=== PATIENT | female | born 1950 | race Caucasian/White ===

== ENCOUNTER 2021-04-27 13:31 | Emergency (ER) | payer MEDICARE, SELFPAY ==
[2021-04-27] VITALS (22 sets, daily range): BP systolic 107–176; BP diastolic 60–109; PULSE 77–110; RESP 14–20; TEMP 36.3; O2SAT 94–98; BMI 24.0
--- NOTE | ~2021-04-27 | CT_ITS ---
EXAMINATION: CT HEAD WITHOUT CONTRAST CLINICAL INFORMATION: Headache. Confusion. COMPARISON: MR brain dated 05/10/2020. TECHNIQUE: Contiguous axial imaging was performed from the skull base to vertex without intravenous administration of contrast. This CT examination was performed using dose optimization techniques as appropriate, variously including the following: *Automated exposure control *Adjustment of mA and/or kV according to patient size (this includes techniques or standardized protocols for targeted exams where dose is matched to indication/reason for exam; i.e. extremities or head) *Use of iterative reconstruction technique DLP: 622 mGy-cm FINDINGS: There is lobulated hyperdensity within the right parieto-occipital lobe measuring 1.6 x 1.6 x 2.1 cm with adjacent parenchymal hypoattenuation. Findings are consistent with acute intraparenchymal hemorrhage and associated edema. This is new when compared to the prior MRI. Minimal effacement of the adjacent sulci as well as the posterior horn of the right lateral ventricle. No significant midline shift. Hypoattenuation of the periventricular white matter, consistent with chronic microvascular ischemic disease. Clarke to white matter differentiation is otherwise well preserved. No extra-axial fluid collections are identified. The ventricles are normal in size. The osseous structures and soft tissues are normal. The mastoid air cells and visualized portions of the paranasal sinuses are well aerated. CT/CT head/brain wo con IMPRESSION: Acute intraparenchymal hemorrhage within the right parieto-occipital lobe measuring up to 2.1 cm with adjacent parenchymal edema. Effacement of the adjacent sulci and partial effacement of the right posterior lateral ventricle. No significant midline shift. This critical result was discussed with Dr. Pizarro at 2:19 PM on 04/27/2021 and it was ascertained that the content and urgency of the report was understood at the time of direct communication.
--- NOTE | 2021-04-27 13:39 | ECG_ITS ---
Test Reason : STROKE Blood Pressure : / mmHG Vent. Rate : 089 BPM Atrial Rate : 089 BPM P-R Int : 132 ms QRS Dur : 078 ms QT Int : 350 ms P-R-T Axes : 030 034 045 degrees QTc Int : 425 ms Normal sinus rhythm Nonspecific ST abnormality Abnormal ECG No previous ECGs available Referred By: Chanda Pizarro Electronically Signed By:KOLE ROLLINS MD
--- NOTE | 2021-04-27 13:41 | ED.HA ---
HPI - Headache General Chief Complaint: Stroke Stated Complaint: Stroke Time Seen by Provider: 04/27/21 13:33 Source: patient Mode of arrival: wheelchair Limitations: no limitations History of Present Illness MD elicited complaint: headache (confusion) Pertinent past history: other (ICH 2.5 years ago) Onset (ago): hour(s) ( sometime this AM. ) Onset description: gradually Location: diffuse Severity: mild Quality & Timing: aching Exacerbating factors: none Relieving factors: nothing Context: occurred at rest Associated symptoms: other (feels confused and is having a hard time reading) Treatments prior to arrival: none (wheeled over from occupational therapy) Related Data Allergies Allergy/AdvReac Type Severity Reaction Status Date / Time No Known Allergies Allergy Verified 04/27/21 13:47 Review of Systems Review of Systems: Constitutional : No Fever, No Chills, No Fatigue ENT/Mouth : No sore throat, No Rhinorrhea Eyes: No Eye Pain, No Swelling, No Redness Cardiovascular : No Chest Pain, No SOB, No Dyspnea on Exertion Respiratory : No Cough, No Sputum Gastrointestinal : No Nausea, No Vomiting, No Diarrhea, No abdominal Pain Genitourinary : No Dysuria, No Urinary Frequency, No Hematuria, Musculoskeletal : No joint pain, No Myalgias, No Joint Swelling Skin : No Skin Lesions, No rash Neuro : No Weakness, No Numbness, No Dizziness, positive Headache, pos confusion Psych : No Anxiety/Panic, No Depression Heme/Lymph: No Bruising, No Bleeding,No Lymphadenopathy Endocrine : No Polyuria, No Polydipsia All other systems reviewed and are negative [facility] Past Medical History Attestation statement: The following information was validated with the patient. Medical History Hemorrhagic stroke Social History Social History (Updated 04/27/21 @ 13:55 by Chanda Pizarro DO) Patient Tobacco Use Status: Never used Tobacco Advance Directives: No Advance Directives Information Provided: Yes Physical Exam Vital Signs: Vital Signs: Last Vital Signs Temp 97.3 F 04/27/21 13:43 Pulse 95 04/27/21 15:58 Resp 16 04/27/21 15:43 BP 133/68 04/27/21 15:58 Pulse Ox 95 04/27/21 15:43 Body Mass Index 24.0 Appearance: Alert. Oriented X2 - states she cannot remember dates. No acute distress. somewhat agitated and upset Eyes: Pupils equal, round and reactive to light. denies visual field cuts ENT: Pharynx normal. Neck: Normal inspection. Neck supple. CVS: Normal heart rate and rhythm. Pulses normal. Respiratory: No respiratory distress. Breath sounds normal. Abdomen: Soft and nontender. Skin: Skin warm and dry. Normal skin color. Normal skin turgor. Extremities: No lower extremity edema. No calf ttp Neuro: Oriented X 2. No motor deficit. No sensory deficit. no drift, came in wheelchair Course Course Course Narrative: will send call to [facility] given ICH R occipital area near R lateral ventricle back in february I can only see atorvastatin, ativan and propanolol that was filled last she has not taken anything in 3 months BP 150 IV nicardipine BP 140 call to [facility] 210pm 244pm transfer to [facility] per stroke attending Dr. Pop waiting to speak to hospitalist team remains at her baseline, no acute changes still pending call back from [facility] 345pm crystal machining coordinator able to get records from PCP - possible amyloid in the past ? patient is not aware. signed out to [facility] pending sign out to hospitalist at [facility] Acute intraparenchymal hemorrhage within the right parieto-occipital lobe measuring up to 2.1 cm with adjacent parenchymal edema. Effacement of the adjacent sulci and partial effacement of the right posterior lateral ventricle. No significant midline shift. MDM - Headache MDM Narrative Medical decision making narrative: 70 yo female reports ICH 2.5 years ago but cannot elaborate why she is here today with difficulty reading and not able to remember people's names. She denies anti coagulation or trauma. She also notes she took herself off her medicatons 3 months ago because you can't stop another stroke. I do not have a good window of when this started this AM. She is a poor historian. Will send to our CT scanner and obtain labs. Lab Data Result diagrams: 04/27/21 14:01 04/27/21 14: Labs: Lab Results 04/27/21 04/27/21 04/27/21 Range/Units 14:01 14:01 14:01 WBC 6.3 (4.8-10.8) X10*3/uL RBC 4.67 (4.20-5.50) X10*6/uL Hgb 13.8 (12.0-16.0) g/dl Hct 40.7 (37-47) % MCV 87.2 (80-98) fL MCH 29.6 (27.0-33.0) pg MCHC 33.9 (31.0-35.0) g/dl RDW 13.4 (11.0-16.0) % Plt Count 277 (160-400) X10*3/uL MPV 8.4 L (9.4-12.3) fL Immature Gran % (Auto) 0.2 (0.0-0.4) % Neut % (Auto) 68.2 (45-73) % Lymph % (Auto) 22.7 (20-40) % [place] % (Auto) 7.8 (2-11) % Eos % (Auto) 0.8 (0-4) % Baso % (Auto) 0.3 (0-2) % Lymph # (Auto) 1.4 (1.2-4.9) X10*3/uL [place] # (Auto) 0.5 (0.1-1.2) X10*3/uL Eos # (Auto) 0.1 (0.0-0.4) X10*3/uL Baso # (Auto) 0.0 (0.0-0.2) X10*3/uL Abs Immat Gran (auto) 0.01 (0.00-0.03) X10*3/uL Absolute Neuts (auto) 4.3 (2.0-8.3) X10*3/uL Absolute Nucleated RBC 0.000 (0.0-0.012) X10*3/uL Nucleated RBC % (auto) 0.0 (0.0-0.2) /100WBC PT (9.9-13.0) SEC Whole Blood PT (11.1-13.5) sec INR (0.9-1.1) Whole Blood INR (0.9-1.1) APTT (24.1-38.0) SEC Sodium 134 L (135-145) mmol/L Potassium 3.9 (3.3-5.1) mmol/L Chloride 97 (96-108) mmol/L Carbon Dioxide 28 (22-29) mmol/L Anion Gap 13 (12-20) BUN 7 L (9-16) mg/dL Creatinine 0.69 (0.5-1.4) mg/dL Estim Creat Clear Calc 66.4 Estimated GFR > 60 POC Glucose (60-115) mg/dL Random Glucose 93 (60-115) mg/dL Calcium 9.4 (8.4-10.2) mg/dL Magnesium 2.2 (1.6-2.6) mg/dL Total Bilirubin 0.4 (0.0-1.0) mg/dL Direct Bilirubin 0.2 (0.0-0.5) mg/dL AST 20 (5-31) U/L ALT 15 (0-31) U/L Alkaline Phosphatase 69 (39-117) U/L Total Protein 6.6 (6.5-8.0) g/dL Albumin 4.3 (3.5-5.0) g/dL Urine Color Urine Appearance Urine pH (5.0-8.0) Ur Specific [place] (1.005-1.025) Urine Protein (NEG-TRACE) MG/DL Urine Glucose (UA) (NEG) MG/DL Urine Ketones (NEG) MG/DL Urine Blood (NEG) Urine Nitrite (NEG) Ur Leukocyte Esterase (NEG) Urine RBC (0) /HPF Urine WBC (0-4) /HPF Ur Squamous Epith Cells /LPF Urine Bacteria /LPF Ethyl Alcohol mg/dL COVID-19 (TRIXIE) Negative (Negative) COVID-19 Clin Com See Note 04/27/21 04/27/21 04/27/21 Range/Units 14:01 14:01 14:17 WBC (4.8-10.8) X10*3/uL RBC (4.20-5.50) X10*6/uL Hgb (12.0-16.0) g/dl Hct (37-47) % MCV (80-98) fL MCH (27.0-33.0) pg MCHC (31.0-35.0) g/dl RDW (11.0-16.0) % Plt Count (160-400) X10*3/uL MPV (9.4-12.3) fL Immature Gran % (Auto) (0.0-0.4) % Neut % (Auto) (45-73) % Lymph % (Auto) (20-40) % [place] % (Auto) (2-11) % Eos % (Auto) (0-4) % Baso % (Auto) (0-2) % Lymph # (Auto) (1.2-4.9) X10*3/uL [place] # (Auto) (0.1-1.2) X10*3/uL Eos # (Auto) (0.0-0.4) X10*3/uL Baso # (Auto) (0.0-0.2) X10*3/uL Abs Immat Gran (auto) (0.00-0.03) X10*3/uL Absolute Neuts (auto) (2.0-8.3) X10*3/uL Absolute Nucleated RBC (0.0-0.012) X10*3/uL Nucleated RBC % (auto) (0.0-0.2) /100WBC PT 10.5 (9.9-13.0) SEC Whole Blood PT 12.0 (11.1-13.5) sec INR 0.9 (0.9-1.1) Whole Blood INR 1.0 (0.9-1.1) APTT 33.8 (24.1-38.0) SEC Sodium (135-145) mmol/L Potassium (3.3-5.1) mmol/L Chloride (96-108) mmol/L Carbon Dioxide (22-29) mmol/L Anion Gap (12-20) BUN (9-16) mg/dL Creatinine (0.5-1.4) mg/dL Estim Creat Clear Calc Estimated GFR POC Glucose (60-115) mg/dL Random Glucose (60-115) mg/dL Calcium (8.4-10.2) mg/dL Magnesium (1.6-2.6) mg/dL Total Bilirubin (0.0-1.0) mg/dL Direct Bilirubin (0.0-0.5) mg/dL AST (5-31) U/L ALT (0-31) U/L Alkaline Phosphatase (39-117) U/L Total Protein (6.5-8.0) g/dL Albumin (3.5-5.0) g/dL Urine Color Urine Appearance Urine pH (5.0-8.0) Ur Specific [place] (1.005-1.025) Urine Protein (NEG-TRACE) MG/DL Urine Glucose (UA) (NEG) MG/DL Urine Ketones (NEG) MG/DL Urine Blood (NEG) Urine Nitrite (NEG) Ur Leukocyte Esterase (NEG) Urine RBC (0) /HPF Urine WBC (0-4) /HPF Ur Squamous Epith Cells /LPF Urine Bacteria /LPF Ethyl Alcohol < 10 mg/dL COVID-19 (TRIXIE) (Negative) COVID-19 Clin Com 04/27/21 04/27/21 Range/Units 14:25 15:00 WBC (4.8-10.8) X10*3/uL RBC (4.20-5.50) X10*6/uL Hgb (12.0-16.0) g/dl Hct (37-47) % MCV (80-98) fL MCH (27.0-33.0) pg MCHC (31.0-35.0) g/dl RDW (11.0-16.0) % Plt Count (160-400) X10*3/uL MPV (9.4-12.3) fL Immature Gran % (Auto) (0.0-0.4) % Neut % (Auto) (45-73) % Lymph % (Auto) (20-40) % [place] % (Auto) (2-11) % Eos % (Auto) (0-4) % Baso % (Auto) (0-2) % Lymph # (Auto) (1.2-4.9) X10*3/uL [place] # (Auto) (0.1-1.2) X10*3/uL Eos # (Auto) (0.0-0.4) X10*3/uL Baso # (Auto) (0.0-0.2) X10*3/uL Abs Immat Gran (auto) (0.00-0.03) X10*3/uL Absolute Neuts (auto) (2.0-8.3) X10*3/uL Absolute Nucleated RBC (0.0-0.012) X10*3/uL Nucleated RBC % (auto) (0.0-0.2) /100WBC PT (9.9-13.0) SEC Whole Blood PT (11.1-13.5) sec INR (0.9-1.1) Whole Blood INR (0.9-1.1) APTT (24.1-38.0) SEC Sodium (135-145) mmol/L Potassium (3.3-5.1) mmol/L Chloride (96-108) mmol/L Carbon Dioxide (22-29) mmol/L Anion Gap (12-20) BUN (9-16) mg/dL Creatinine (0.5-1.4) mg/dL Estim Creat Clear Calc Estimated GFR POC Glucose 84 (60-115) mg/dL Random Glucose (60-115) mg/dL Calcium (8.4-10.2) mg/dL Magnesium (1.6-2.6) mg/dL Total Bilirubin (0.0-1.0) mg/dL Direct Bilirubin (0.0-0.5) mg/dL AST (5-31) U/L ALT (0-31) U/L Alkaline Phosphatase (39-117) U/L Total Protein (6.5-8.0) g/dL Albumin (3.5-5.0) g/dL Urine Color YELLOW Urine Appearance CLEAR Urine pH 7.5 (5.0-8.0) Ur Specific [place] 1.010 (1.005-1.025) Urine Protein NEG (NEG-TRACE) MG/DL Urine Glucose (UA) NEG (NEG) MG/DL Urine Ketones NEG (NEG) MG/DL Urine Blood NEG (NEG) Urine Nitrite NEG (NEG) Ur Leukocyte Esterase TRACE H (NEG) Urine RBC 0-2 (0) /HPF Urine WBC 1-4 (0-4) /HPF Ur Squamous Epith Cells TRACE /LPF Urine Bacteria TRACE /LPF Ethyl Alcohol mg/dL COVID-19 (TRIXIE) (Negative) COVID-19 Clin Com Critical Care Time Critical Care Time Critical Care Time: Yes Total Critical Care Time: 60 Attestation: medical consult, IV BP control - gtt, transfer to tertiary center I attest to this time spent taking care of the patient Discharge Plan Discharge Clinical Impression: Intracranial hemorrhage HTN (hypertension) Qualifiers: Hypertension type: unspecified Qualified Code(s): I10 - Essential (primary) hypertension Patient Disposition: er [facility] Hospital Transfer Details: [facility]
[2021-04-27 14:06] LABS: MANUAL DIFF FLAG NO
[2021-04-27 14:08] LABS: Basophils Percent Auto 0.3 % (0-2); Eosinophils Absolute Auto 0.1 X10*3/uL (0.0-0.4); Eosinophils Percent Auto 0.8 % (0-4); Hematocrit 40.7 % (37-47); Hemoglobin 13.8 g/dl (12.0-16.0); Imm Gran Abs Auto 0.01 X10*3/uL (0.00-0.03); Imm Gran Pct Auto 0.2 % (0.0-0.4); Lymphocytes Absolute Auto 1.4 X10*3/uL (1.2-4.9); Lymphocytes Percent Auto 22.7 % (20-40); Mean Corpuscular HGB Conc 33.9 g/dl (31.0-35.0); Mean Corpuscular Hemoglobin 29.6 pg (27.0-33.0); Mean Corpuscular Volume 87.2 fL (80-98); Mean Platelet Volume 8.4 fL (9.4-12.3); Monocytes Absolute Auto 0.5 X10*3/uL (0.1-1.2); Monocytes Percent Auto 7.8 % (2-11); Neutrophils Absolute Auto 4.3 X10*3/uL (2.0-8.3); Neutrophils Percent Auto 68.2 % (45-73); Platelet Count 277 X10*3/uL (160-400); Red Blood Count 4.67 X10*6/uL (4.20-5.50); Red Cell Distribution Width 13.4 % (11.0-16.0); White Blood Count 6.3 X10*3/uL (4.8-10.8)
[2021-04-27] MEDS: niCARdipine HCL 25 MG in 0.9 % Sodium Chloride 250 ML 52 MG IVCONT (14:15)
[2021-04-27 14:16] LABS: INTERNATIONAL NORM RATIO 0.9 (0.9-1.1); Prothrombin Time 10.5 SEC (9.9-13.0)
[2021-04-27 14:18] LABS: Partial Thromboplastin Time 33.8 SEC (24.1-38.0)
[2021-04-27 14:19] LABS: Ethanol < 10 mg/dL
[2021-04-27 14:22] LABS: COVID-19 Test Negative (Negative)
[2021-04-27 14:23] LABS: Alanine Aminotransferase 15 U/L (0-31); Albumin Level 4.3 g/dL (3.5-5.0); Alkaline Phosphatase 69 U/L (39-117); Anion Gap 13 (12-20); Aspartate Amino Transferase 20 U/L (5-31); Bilirubin Direct 0.2 mg/dL (0.0-0.5); Bilirubin Total 0.4 mg/dL (0.0-1.0); Blood Urea Nitrogen 7 mg/dL (9-16); Calcium 9.4 mg/dL (8.4-10.2); Carbon Dioxide 28 mmol/L (22-29); Chloride 97 mmol/L (96-108); Creatinine Clr Calc Pharmacy 66.4; Estimated Glomerular Filt Rate > 60; Glucose Random 93 mg/dL (60-115); Magnesium 2.2 mg/dL (1.6-2.6); Potassium 3.9 mmol/L (3.3-5.1); Sodium 134 mmol/L (135-145); Total Protein 6.6 g/dL (6.5-8.0)
[2021-04-27 14:29] LABS: Glucose, Whole Blood 84 mg/dL (60-115)
--- NOTE | 2021-04-27 14:29 | PC.NURSE ---
CALL PLACED TO [facility] PT [place] LINE AT THIS TIME
--- NOTE | 2021-04-27 14:43 | PC.NURSE ---
@ [id number] RETURN CALL FROM [facility] PT [place] LINE ASKING TO SPEAK WITH DR JUAN CARLOS RANGEL TAKES OF CALL RIGHT AWAY
--- NOTE | 2021-04-27 14:52 | MHC.STROKE ---
Addendum entered by Liana Jamison RN 04/27/21 15:15: I REACHED PATIENTS CURRENT PCP SHAHRIAR PIZANO AT [facility]. ([phone]). ROSEMARY JAMISON IS A FAIRLY NEW PATIENT OF [facility]. SHE SAID THE PATIENT DOES NOT HAVE HTN, SHE IS ON PROPRANOLOL FOR HER ANXIETY. SHE SEES NEUROLOGIST DR. ESTRLELA FOR HER ICH AND THAT BLEED, HX OF AMYLOID ANGIOPATHY. I DID RELAY THAT THE PATIENT HAS A NEW RIGHT HEMORRHAGIC STROKE AND WILL BE TRANSFERRED TO [facility]. Original Note: 1342 CONTACTED BY STACY RN IN ED WITH A POSSIBLE STROKE PATIENT THAT CAME FROM AN OUTPATIENT APPOINTMENT AT THE SPEECH CLINIC. EXAMINED BY ED MD THEN DIRECT TO CT. A RIGHT PARIETAL/OCCIPITAL HEMORRHAGE NOTED. NIHSS = 1 FOR SLIGHT LEFT VISUAL FIELD ABNORMALITY. THE PATIENT SAID THIS MORNING AROUND [phone] SHE WAS HAVING DIFFICULTY READING AND A SLIGHT HEADACHE. SHE WENT ALONG WITH HER DAY. CALLED HER RIDE (ALICE [phone]) AND CAME TO HER SPEECH THERAPY APPOINTMENT. THE THERAPIST UNDERSTOOD THAT THIS IS A CHANGE FROM THE PATIENTS BASELINE AND BROUGHT HER TO ED, IT TOOK SOME CONVINCING BY ED RN STACY BUT THE PATIENT DECIDED TO COMPLY AND FOLLOW THROUGH ON THE ED EXAM. THE PATIENT HAS NOT BEEN SEEN AT [facility] ACCORDING TO THE SPEECH NOTES SHE HAS A HISTORY OF ICH 2 YEARS AGO, COLITIS, ANXIETY/DEPRESSION, TREMORS, AND NEUROPATHY. THE PATIENT SAID THAT SHE STOPPED TAKING HER MEDICATIONS, SHE DENIES HTN BUT HER BP IS ELEVATED AND WE DO NOT HAVE THE RECORDS FROM [facility] (THAT IS WHERE SHE WENT FOR HER BLEED). I WILL TRY TO CONTACT HER PCP FOR FURTHER CLARIFICATION. SHE FAILED SWALLOW SCREEN AND IS BEING KEPT NPO. BP GOAL SBP 140'S, MAP 90-110 PER PROTOCOL. IV NICARDIPINE STARTED. THIS WAS REVIEWED WITH THE RN'S CARING FOR THE PATIENT. THE PATIENT IS ALERT AND ORIENTED, AND IS VERY ANXIOUS. A CALL WAS PLACE TO [facility] FOR TRANSFER TO NEUROSURGERY. FILMS SENT VIA [employer]. ALL OF THIS INFORMATION AND PLAN WAS EXPLAINED TO THE PATIENT. SHE INITIALLY DID NOT HAVE ANY NUMBERS TO CALL ANYONE BUT SHE HAS SINCE REMEMBERED AND IS SPEAKING WITH SOMEONE. SPEECH THERAPIST BRYSON HAS BEEN CHECKING IN. I WILL CONTINUE TO FOLLOW.
[2021-04-27 15:13] LABS: Appearance Urine CLEAR; Color Urine YELLOW; Glucose Urine UA NEG (NEG); Leukocyte Esterase Urine TRACE (NEG); Nitrite Urine NEG (NEG); PH 7.5 (5.0-8.0); UACC Culture Trigger YES; Urine Blood NEG (NEG); Urine Ketones NEG (NEG); Urine Protein NEG (NEG-TRACE)
[2021-04-27 15:27] LABS: RBC Urine 0-2 /HPF (0)
[2021-04-27 15:31] LABS: Squamous Epithelial Cell Urine TRACE /LPF
[2021-04-27 15:34] LABS: Bacteria Urine TRACE /LPF
--- NOTE | 2021-04-27 17:08 | PC.NURSE ---
placed call to [facility], multiple attempts to reach hospitalist transfer center placed call to different hospitalist, waiting return call
--- NOTE | 2021-04-27 18:17 | PC.NURSE ---
return call from [facility] with admitting provider at [phone], awaiting bed assignment att
--- NOTE | 2021-04-27 18:32 | PC.NURSE ---
[facility] [address] bed 21 nurse-nurse [phone]
--- NOTE | 2021-04-27 18:47 | PC.NURSE ---
Nursing report given to Anjali TORRES at [facility].,
== END 2021-04-27 19:21 | disposition short-term general hospital (02) ==
PROVIDERS: Emergency Provider Emergency Medicine; PCP Physician Assistant Medical
DX: I62.9 Nontraumatic intracranial hemorrhage, unspecified (principal); I10 Essential (primary) hypertension; Z20.822 Contact with and (suspected) exposure to COVID-19
CPT/HCPCS: 36415; 70450; 80048; 80076; 81001; 82077; 82947; 83735; 85025; 85610; 85730; 87086; 87635; 93005; 96365; 96366; 99285; 99291

== ENCOUNTER 2021-05-04 13:00 | Outpatient (RCR) | payer MEDICARE, SELFPAY ==
--- NOTE | 2021-04-09 16:51 | MHC.SP.ADU ---
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 Background information included in this report was provided by the patient herself and review of past medical documentation. She was referred for a speech-language evaluation by Elke Jamison PA-C/ Josephine Barlow MD from [facility] in [place], [place]. Patient reports difficulties in the following areas of communication and cognition: reading, speaking, understanding, memory, attention, math, and problem solving. Patient reports she previously participated in speech therapy at [facility] for 2 years. Patient wears glasses and reports having some difficulty hearing. She states that she does not have hearing aids and has not had her hearing evaluated. Patient reports having a stroke 2 years ago. Patient attends weekly meetings with the Stroke Survivor Support Group at the [facility]. MD reports that patient is unable to drive and is considered home bound. Per MD note, medical history is also significant for: anxiety, major depressive disorder, osteoporosis, tremor, peripheral neuropathy, intracranial hemorrhage, microscopic colitis. 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 Reported Speech, Language, Cognition difficulties: Understanding Attention Reading Memory Cognition Speaking Problem Solving Writing Math Comments: Patient reports difficulties in the following areas: understanding, attention, problem solving, reading/writing, speaking, math, and memory. Assessment Speech Production: Aphasic: Nonfluent Clinical Impression: Impaired Observations: Patient was 100% intelligible to the clinician, an unfamiliar, but trained listener. Patient's formulated complete sentences with appropriate syntactic structure. Noted word finding difficulties at the conversational level. Recommend screening for voice/dysarthria/motor speech. Tests of Speech & Lang Adults: BDAE Clinical Impression: Impaired Observations: Patient was administered the Auditory Comprehension, Oral Expression, Reading and Writing subtests of the Acworth Diagnostic Aphasia Examination (BDAE). The BDAE is an assessment used to evaluate for receptive and expressive aphasia in individuals 16 years and older. Her performance is summarized below: RECEPTIVE LANGUAGE: -Patient followed single step commands without difficulty. -During a basic word discrimination task, patient identified the line image which best depicted the word spoken by the clinician from a choice of 4 in 14 out of 16 trials. -Patient followed multistep and complex directions: 10/10 correct -Patient correctly answered yes/no questions about ideational material in 0 out of 2 trials and about short stories read aloud for her in 4/4 trials. EXPRESSIVE LANGUAGE: -Patient generated the days of the week and counted to 21, demonstrating intact automatic speech: 4/4 score -Patient repeated single words in 4 out of 5 trials and complete sentences in 2 out of 2 trials. Patient exhibited difficulty coordinating syllables in the word, ?Jew Yarsanism.? -Patient responded appropriately to responsive naming questions in 3 out of 5 trials, receiving at 6/10 score. Patient presents with word finding difficulty. -Patient correctly named ?special categories,? which included letters, numbers, and colors in 9 out of 12 trials. Patient exhibited difficulty naming colors. READING: -Patient was able to match letters across cases and scripts, demonstrating basic symbol recognition- 4/4 correct -Patient was able to match numbers to fingers and dot patterns- 4/4 correct -Patient matched pictures to written words - 3/4 correct -Patient read aloud single words within 0-5 seconds, demonstrating basic oral word reading- 15 -Patient read aloud sentences without error in 3 out of 5 trials. Patient answered comprehension questions correctly after a short time delay in 3 out of 3 trials. -Patient read aloud sentences and paragraphs and selected the completion from a choice of 4 without assistance- 4/4 correct WRITING: -Patient was able to print and sign her name -Patient was able to write dictated letters -Patient was able to write numbers 1-10 -Patient was able to write dictated numbers -Patient wrote primer words (i.e. cat; run; go; dog), words with regular phonics (i.e. flag), and common irregular forms (i.e. cough) without error, demonstrating basic encoding skills when writing dictated words- 4/4; 2/2; 3/3 correct Based on results of this assessment, patient presents with a mild to moderate receptive-expressive aphasia and moderate cognitive linguistic impairment. Tests of Cognition: CLQT Clinical Impression: Impaired Observations: Patient was administered the Cognitive Linguistic Quick Test (CLQT). The CLQT is a criterion-referenced assessment used to gain information about an individual?s relative strengths and weaknesses and to identify deficits in cognitive-linguistic skills in individuals aged 18-89 years old. The CLQT generates severity ratings in the following five cognitive domains: Attention, Memory, Language, Executive Functions, and Visuospatial Skills. Patient?s performance on the CLQT is displayed below: Task: Patient?s Score, Criterion Cut Score, Interpretation Personal Facts: 8, 8, Within Functional Limits Symbol Cancellation: 5, 11, Below Average Confrontational Namin, 10, Below Average Clock Drawin, 12, Below Average Story Retellin, 6, Within Functional Limits Symbol Trails: 7, 9, Below Average Generative Namin, 5, Below Average Design Memory: 2, 5, Below Average Mazes: 3, 7, Below Average Design Generation: 6, 6, Within Functional Limits Task scores were summed together based on cognitive domain. Cognitive Domain scores are as follows: Cognitive Domain: Domain Score, Severity Range, Severity Rating Attention: 100, Moderate, 2 Memory: 115, Moderate, 2 Executive Functions: 19, Moderate, 2 Language: 21, Moderate, 2 Visuospatial Skills: 47, Moderate, 2 Patient?s Composite Severity Rating of 2 is interpreted as a MODERATE COGNITIVE LINGUISTIC IMPAIRMENT according to her performance on this assessment measure. Attention skills include the ability to maintain attention over time, selectively disengage from one task to engage in a new one, and the ability to coordinate the demands of multiple tasks (Jayant-Dilma, 2001). Patient was able to attend to simple, short tasks but exhibited some difficulty coordinating the demands of multiple tasks at once. Patient demonstrated impaired memory skills according to her performance on the CLQT. Memory is a complex process that includes the ability to attend to, process, retain, store, and retrieve information (Santos, 2001). Patient was able to accurately retrieve information about personal facts (integrity of previously stored information) and immediately recall details about a story verbally presented by the clinician (immediate recall of new information presented in a paragraph), but exhibited difficulty recalling design shapes (immediate recall of new visual information). Patient demonstrated a moderate impairment in executive function skills based on her performance on the CLQT. Patient completed tasks that assessed her ability to plan, sequence, implement, and accomplish goal-directed activities in flexible manner, taking into consideration situational and environmental changes (Santos, 2001). When planning a route to complete a maze, she was observed to change paths several times, but ultimately completed the task within the time constraint. It was noted that during the design generation activity, patient perseverated on her designs, copied example designs generated by the clinician, and cortney designs with 2-3 lines rather than four. Individuals with typical neurological cognitive-linguistic skills typically generate more designs by creating a pattern in alternating positions of the designs. This reflects some inflexibility in the generation of new designs or ideas. Patient demonstrated moderate impairment in her language skills based on her performance on the CLQT. Patient presents with strengths in her receptive language abilities, as she correctly answered WH- and yes/no questions, retold a story verbally presented by the clinician, and correctly answered comprehension questions about the story. She exhibited difficulty with confrontational naming and generative naming tasks. Visuospatial skills include the ability to scan, discriminate, analyze, and interpret visual information (Santos, 2001). Patient exhibited difficulty remembering a symbol and recognizing it in a visual field that included several other symbols (symbol cancellation task); and recalling designs to choose the one she had studied in a choice of six (design memory task). She exhibited difficulty in another task targeting visuo-spatial skills, which required her to draw lines between alternating shapes of different sizes. Patient was reminded of task instructions and was provided with examples, as permitted by test administration guidelines. Impressions and Recommendations Summary: Based on results of this assessment, patient presents with a mild to moderate receptive-expressive aphasia and moderate cognitive linguistic impairment. 1. Patient is recommended consultation with a neurologist due to history of CVA, evident tremors of upper extremities, and concerns surrounding speech/cognition. 2. Patient is recommended consultation with an putter in due to patient?s reports of difficulty hearing. 3. Recommend patient to participate in 12 weekly individualized speech therapy visits with goals targeting word finding, functional language tasks, attention, and memory. Impact on Daily Function/Activity Limitations: Daily Activities: Mild Interpersonal Interactions: Mild Education: Employment: Community: Moderate Prognosis for Improvement: Fair Recommendation for Speech Therapy: Outpatient Speech Therapy Frequency/Duration: 1x weekly x 12 weeks Time to Reassess: 6 months Snf Goals: 1.) Patient will utilize a variety of word-finding strategies at the conversational level with minimal assistance in >80% opportunities presented to her.? 2.) Patient will improve her ability to employ mental flexibility when solving complex problems. 3.) Patient will utilize compensatory strategies to assist short-term memory Short Term Goals: Goal # : 1.1. Patient will utilize Semantic Feature cues (i.e. category, use, function, physical components, association, location) to describe items to a listener successfully in 80% of opportunities with visual support (chart). 1.2. Patient will identify a category given members in 4 out of 5 trials with minimal assistance. 1.3. Patient will identify a target word when provided with 3-4 related words or phrases in a word deduction task with 80% accuracy and minimal verbal assistance. Goal Status: New Goal Goal# : 2.1. Patient will demonstrate mental flexibility by identifying 2 possible solutions to safety situations in 80% of trials with minimal assistance. Goal Status: New Goal Goal # : 3.1. Patient will listen to auditory information (i.e. voicemail, ads, instructions for medication dosage, invitations) and make note of pertinent information in 80% of opportunities with minimal verbal cues. 3.2. Patient will use compensatory strategies (visualization, verbal rehearsal, writing notes, etc) to recall 4 item grocery lists with 80% accuracy and 1-2 repetitions. 3.3. Patient will recite 4 word lists presented to her verbally in reverse order with 80% accuracy and 1-2 repetitions. Goal Status: New Goal Recommended Referrals to be Discussed with Primary Care Provider: Audiological Evaluation Neurology Patient Education: Completed: Yes Patient/Caregiver Education: Described Results of Evaluation Patient expressed understanding of evaluation Comments/Barriers to Learning: Repairer Handtools Clinican/Clinical Fellow: Yes: Maritza Nieves Supervisory Statement: N/A Speech Language Pathologist: Belén French M.A., CCC-VISUAL MERCHANDISING ASSISTANT
--- NOTE | 2021-05-04 14:10 | MHC.SLORD ---
Speech Language Pathology Order Status: Last week 04/27/21 patient was wheeled to the emergency department by speech language pathologist and student from outpatient speech therapy appointment. Patient reported increased difficulties in reading, speaking, and memory. She also reported difficulty seeing. Patient was transferred to [facility] [place] from ED for intracranial hemorrhage. Patient called [employer] this morning to provide update. Patient reports she was diagnosed with amyloid angiopathy, and is now being provided with home care through [facility] [place]. At this time, discharge outpatient speech therapy as patient is being provided with home services. Patient has this [employer]'s contact information and was encouraged to contact [employer] if at any time she can be of further assistance.
== END 2021-05-04 16:19 | disposition home or self-care (01) ==
LOC: HO.SH 13:00
PROVIDERS: Visit Provider Physician Assistant Medical
DX: R47.01 Aphasia (principal); R41.841 Cognitive communication deficit
CPT/HCPCS: 92507; 92523

== ENCOUNTER 2021-07-24 16:10 | Emergency (ER) | payer MEDICARE, SELFPAY ==
--- NOTE | ~2021-07-24 | CT_ITS ---
EXAMINATION: CT HEAD WITHOUT CONTRAST CLINICAL INFORMATION: LOC. COMPARISON: CT brain 04/27/2021 TECHNIQUE: Contiguous axial imaging was performed from the skull base to vertex without intravenous administration of contrast. This CT examination was performed using dose optimization techniques as appropriate, variously including the following: *Automated exposure control *Adjustment of mA and/or kV according to patient size (this includes techniques or standardized protocols for targeted exams where dose is matched to indication/reason for exam; i.e. extremities or head) *Use of iterative reconstruction technique DLP: 653 mGy-cm FINDINGS: There is acute right para falcine frontal lobe hypodensity consistent with hemorrhage with surrounding edema. There is no midline shift. There is extensive hemorrhage through the overlying cortical surface. No additional areas of hemorrhage is visualized. There is no acute infarct in evolution. There is no edema. There is old left posterior parietal lobe encephalomalacia from old insult or infarct. The maki to white matter differentiation is well preserved. No extra-axial fluid collections are identified. The lateral ventricles are enlarged but symmetrical. There is diffuse periventricular hypodensity suggestive of chronic small vessel ischemic changes without mass effect. The osseous structures and soft tissues are normal. The mastoid air cells and visualized portions of the paranasal sinuses are well aerated. CT/CT head/brain wo con IMPRESSION: Acute Midline right frontal lobe hemorrhage with surrounding edema. No shift. Old left posterior parietal lobe encephalomalacia from previous insult. There is mild ex-vacuole dilatation of occipital horn left lateral ventricle. The ventricles are enlarged likely for mild central cerebral volume loss. There is chronic small vessel ischemic changes in both cerebral hemispheres.
[2021-07-24 16:22] VITALS: BP 159/77; BP 164/88; PULSE 86; PULSE 97; RESP 16; TEMP 37; O2SAT 95; O2SAT 96; BMI 29.0
--- NOTE | 2021-07-24 16:35 | ECG_ITS ---
Test Reason : medical Blood Pressure : / mmHG Vent. Rate : 072 BPM Atrial Rate : 072 BPM P-R Int : 128 ms QRS Dur : 080 ms QT Int : 390 ms P-R-T Axes : 017 041 065 degrees QTc Int : 427 ms Normal sinus rhythm Normal ECG When compared with ECG of 27-APR-2021 14:40, No significant changes seen Referred By: Suleman Kang Electronically Signed By:VICKY ACUÑA
--- NOTE | 2021-07-24 16:43 | ED.GENADULT ---
HPI - General Adult General Chief complaint: General Medical Stated complaint: FREQUENT FALLS Time Seen by Provider: 07/24/21 16:35 Source: patient Mode of arrival: EMS History of Present Illness HPI narrative: This is a 70-year-old female who came in by ambulance complains that as of 530 yesterday she noted a change where she seems to have problems processing plans such as an inability to take her clothes off or know which steps to do 1st in doing multistep things such as that. Patient notes that she has chronic word-finding problems, states these are unchanged. Patient notes that she has a history of stroke and states that she has elevated amylase levels, which she knows can cause dementia. The patient denies any headache. She denies any acute visual changes. She denies any chest pain or shortness of breath. She denies any abdominal pain at present but she did have a feeling of discomfort in her upper abdomen earlier. She also notes that yesterday she had noted that her left hand and left foot felt and looked bigger, but this has resolved. Patient denies any history of hypertension or diabetes. She is a former tobacco user Related Data Allergies Allergy/AdvReac Type Severity Reaction Status Date / Time No Known Allergies Allergy Verified 04/27/21 13:47 Review of Systems Review of Systems: Yes all other systems are reviewed and are negative Constitutional: Constitutional: Reports as per HPI and Denies fever(s) Eyes: Eyes: Reports as per HPI ENT: Reports system reviewed and no additional complaints, except as documented, Reports as per HPI, Denies nasal congestion, Denies nasal discharge and Denies sore throat Cardiovascular: Cardiovascular: Reports as per HPI, Denies chest pain and Denies dyspnea Respiratory: Respiratory: Reports as per HPI, Denies cough and Denies dyspnea Gastrointestinal: Gastrointestinal: Reports as per HPI, Denies abdominal pain, Denies diarrhea and Denies vomiting Genitourinary: Genitourinary: Reports as per HPI, Denies hematuria, Denies urinary frequency and Denies dysuria Musculoskeletal: Musculoskeletal: Reports no additional musculoskeletal complaints and Denies numbness Integumentary/Breasts: Skin/Breast: Reports as per HPI and Denies rash Neurologic: Reports as per HPI, Denies focal weakness, Denies numbness and Denies Sensory deficit (Neuro) Psychiatric: Psychiatric: Reports no additional psychiatric complaints and Reports as per HPI Endocrine: Endocrine: Reports no additional endocrine complaints and Reports as per HPI Hematologic/Lymphatic: Hematologic/Lymphatic: Reports no additional hematologic/lymphatic complaints, Reports as per HPI and Reports other (No peripheral edema) [facility] Past Medical History Medical History Hemorrhagic stroke Social History Social History (Updated 04/27/21 @ 13:55 by Chanda Pizarro DO) Alcohol intake: never Patient Tobacco Use Status: Never used Tobacco Smoked in Last 30 Days: No Use of substances other than those prescribed or required for medical reasons: No Advance Directives: No Advance Directives Information Provided: Yes Physical Exam Vital Signs: Vital Signs: Last Vital Signs Temp 97.8 F 07/24/21 18:34 Pulse 76 07/24/21 18:34 Resp 15 07/24/21 18:34 BP 138/78 07/24/21 18:34 Pulse Ox 96 07/24/21 18:34 BMI result Body Mass Index 29.0 Const: Other: Patient with fluent speech, no apparent neurologic impairment, seems anxious General: cooperative, no acute distress and alert Orientation/consciousness: patient oriented x3 HENMT: Head: Yes normal to inspection Eyes: General: appearance normal, both eyes and all related structures Eyelids: Yes eyelids normal Conjunctivae: conjunctivae normal Pupils: Equal, round and reactive pupils present Neck: Neck: Yes normal visual inspection and Yes supple Chest: Chest palpation & inspection: normal inspection of the chest Resp: Effort & Inspection: normal respiratory effort Auscultation: clear to auscultation bilaterally Cardio: Rate: regular rate Rhythm: regular rhythm Heart sounds: S1 normal heart sound present, S2 normal heart sound present, no gallops, no murmurs and no rubs GI: Palpation (GI): Soft to palpation, nontender and Other GI palpation findings present (Non-distended) Auscultation: normal bowel sounds Skin: General skin exam: no rashes or lesions noted Neuro: General: patient oriented x3, no focal motor deficits and CN's II-XI intact bilaterally Cranial nerves: Yes Equal, round and reactive pupils present Cognition (Neuro): normal cognition Motor exam (neuro): 5/5 motor strength present throughout Sensory Exam: No Sensory deficit (Neuro) Extrem: General: Yes normal to inspection and Yes no pedal edema Psych: Appearance: grossly normal Affect: normal affect Medical Decision Making [facility] Narrative Medical decision making narrative: Patient noted a change in her mentation with apparent increased executive function, starting yesterday around 530 p.m.. Patient has had a prior brain hemorrhage related to her amyloid. CT scan did show evidence of an acute hemorrhage, no midline shift, localized edema only. Patient's blood pressure is not elevated. Speech is fluent, no other focal neurologic abnormality except for for memory and decreased executive function Case was discussed with nurse surgery a [facility], who request that I speak to the neurology service, and I spoke with Dr. Figueroa, , who referred me to speak to the hospitalist, and I spoke with the midlevel Gracy, except with the patient, Dr. Quintanilla is the accepting physician. Critical care time for this life-threatening illness exclusive of all other billable procedures was approximately 45 minutes including initial evaluation of the patient, ordering tests, x-ray interpretation, EKG interpretation, medical consultation, documentation, reevaluation. Lab Data Lab results reviewed: Yes I reviewed the patient's lab results. Result diagrams: 07/24/21 17:36 07/24/21 17:36 Labs: Lab Results 07/24/21 07/24/21 07/24/21 Range/Units 17:36 17:36 17:47 WBC 5.3 (4.8-10.8) X10*3/uL RBC 4.69 (4.20-5.50) X10*6/uL Hgb 14.1 (12.0-16.0) g/dl Hct 42.1 (37.0-47.0) % MCV 89.8 (80.0-98.0) fL MCH 30.1 (27.0-33.0) pg MCHC 33.5 (31.0-35.0) g/dl RDW 12.4 (11.0-16.0) % Plt Count 281 (160-400) X10*3/uL MPV 8.6 L (9.4-12.3) fL Immature Gran % (Auto) 0.2 (0.0-0.4) % Neut % (Auto) 61.7 (45-73) % Lymph % (Auto) 27.2 (20-40) % [place] % (Auto) 9.0 (2-11) % Eos % (Auto) 1.5 (0-4) % Baso % (Auto) 0.4 (0-2) % Lymph # (Auto) 1.5 (1.2-4.9) X10*3/uL [place] # (Auto) 0.5 (0.1-1.2) X10*3/uL Eos # (Auto) 0.1 (0.0-0.4) X10*3/uL Baso # (Auto) 0.0 (0.0-0.2) X10*3/uL Abs Immat Gran (auto) 0.01 (0.00-0.03) X10*3/uL Absolute Neuts (auto) 3.3 (2.0-8.3) x10*3/uL Absolute Nucleated RBC 0.000 (0.0-0.012) X10*3/uL Nucleated RBC % (auto) 0.0 (0.0-0.2) /100WBC PT 10.7 (9.9-13.0) SEC INR 0.9 (0.9-1.1) APTT 34.0 (24.1-38.0) SEC Sodium 136 (135-145) mmol/L Potassium 4.1 (3.3-5.1) mmol/L Chloride 99 (96-108) mmol/L Carbon Dioxide 29 (22-29) mmol/L Anion Gap 12 (12-20) BUN 9 (9-16) mg/dL Creatinine 0.76 (0.5-1.4) mg/dL Estim Creat Clear Calc 75.2 Estimated GFR > 60 Random Glucose 98 (60-115) mg/dL Calcium 9.4 (8.4-10.2) mg/dL Total Bilirubin 0.6 (0.0-1.0) mg/dL AST 19 (5-31) U/L ALT 12 (0-31) U/L Alkaline Phosphatase 53 D (39-117) U/L Total Protein 6.4 L (6.5-8.0) g/dL Albumin 4.1 (3.5-5.0) g/dL COVID-19 (TRIXIE) (Negative) COVID-19 Clin Com 07/24/21 Range/Units 18:05 WBC (4.8-10.8) X10*3/uL RBC (4.20-5.50) X10*6/uL Hgb (12.0-16.0) g/dl Hct (37.0-47.0) % MCV (80.0-98.0) fL MCH (27.0-33.0) pg MCHC (31.0-35.0) g/dl RDW (11.0-16.0) % Plt Count (160-400) X10*3/uL MPV (9.4-12.3) fL Immature Gran % (Auto) (0.0-0.4) % Neut % (Auto) (45-73) % Lymph % (Auto) (20-40) % [place] % (Auto) (2-11) % Eos % (Auto) (0-4) % Baso % (Auto) (0-2) % Lymph # (Auto) (1.2-4.9) X10*3/uL [place] # (Auto) (0.1-1.2) X10*3/uL Eos # (Auto) (0.0-0.4) X10*3/uL Baso # (Auto) (0.0-0.2) X10*3/uL Abs Immat Gran (auto) (0.00-0.03) X10*3/uL Absolute Neuts (auto) (2.0-8.3) x10*3/uL Absolute Nucleated RBC (0.0-0.012) X10*3/uL Nucleated RBC % (auto) (0.0-0.2) /100WBC PT (9.9-13.0) SEC INR (0.9-1.1) APTT (24.1-38.0) SEC Sodium (135-145) mmol/L Potassium (3.3-5.1) mmol/L Chloride (96-108) mmol/L Carbon Dioxide (22-29) mmol/L Anion Gap (12-20) BUN (9-16) mg/dL Creatinine (0.5-1.4) mg/dL Estim Creat Clear Calc Estimated GFR Random Glucose (60-115) mg/dL Calcium (8.4-10.2) mg/dL Total Bilirubin (0.0-1.0) mg/dL AST (5-31) U/L ALT (0-31) U/L Alkaline Phosphatase (39-117) U/L Total Protein (6.5-8.0) g/dL Albumin (3.5-5.0) g/dL COVID-19 (TRIXIE) Negative (Negative) COVID-19 Clin Com See Note Imaging Data CT scan - head: Radiologist's impression: IMPRESSION: Acute ? Midline right frontal lobe hemorrhage with surrounding edema. No shift. ? Old left posterior parietal lobe encephalomalacia from previous insult. There is mild ex-vacuole dilatation of occipital horn left lateral ventricle. ? The ventricles are enlarged likely for mild central cerebral volume loss. There is chronic small vessel ischemic changes in both cerebral hemispheres. ECG Data Attestation: I personally reviewed and interpreted this ECG as follows: Interpretation: Sinus rhythm with a rate of 72. Peaked appearing T-waves in leads V2 V3, otherwise normal EKG. Discharge Plan Discharge Clinical Impression: Hemorrhagic stroke
--- NOTE | 2021-07-24 16:55 | PC.NURSE ---
Pt is profoundly verbally aggressive with this writer producer during the triage process. i'm going to fall and theres nothing you can do to stop me Pt is a and o x 4 and in capacity. Pt does not have a known history of impulsivity post her CVA. Pt given red socks, Bed in locked and low position. Pt provided education regarding fall prevention during traige process and reinforced by provider at bedside. Pt states when the provider asked if she has abdominal pain, I didn't until you just said something! Why did you say something?!
[2021-07-24] MEDS: LORazepam 1 MG TABLET PO (17:30)
[2021-07-24 17:39] LABS: MANUAL DIFF FLAG NO
[2021-07-24 17:41] LABS: Basophils Percent Auto 0.4 % (0-2); Eosinophils Absolute Auto 0.1 X10*3/uL (0.0-0.4); Eosinophils Percent Auto 1.5 % (0-4); Hematocrit 42.1 % (37.0-47.0); Hemoglobin 14.1 g/dl (12.0-16.0); Imm Gran Abs Auto 0.01 X10*3/uL (0.00-0.03); Imm Gran Pct Auto 0.2 % (0.0-0.4); Lymphocytes Absolute Auto 1.5 X10*3/uL (1.2-4.9); Lymphocytes Percent Auto 27.2 % (20-40); Mean Corpuscular HGB Conc 33.5 g/dl (31.0-35.0); Mean Corpuscular Hemoglobin 30.1 pg (27.0-33.0); Mean Corpuscular Volume 89.8 fL (80.0-98.0); Mean Platelet Volume 8.6 fL (9.4-12.3); Monocytes Absolute Auto 0.5 X10*3/uL (0.1-1.2); Neutrophils Absolute Auto 3.3 x10*3/uL (2.0-8.3); Neutrophils Percent Auto 61.7 % (45-73); Platelet Count 281 X10*3/uL (160-400); Red Blood Count 4.69 X10*6/uL (4.20-5.50); Red Cell Distribution Width 12.4 % (11.0-16.0); White Blood Count 5.3 X10*3/uL (4.8-10.8)
[2021-07-24 18:00] LABS: Alanine Aminotransferase 12 U/L (0-31); Albumin Level 4.1 g/dL (3.5-5.0); Alkaline Phosphatase 53 U/L (39-117); Anion Gap 12 (12-20); Aspartate Amino Transferase 19 U/L (5-31); Bilirubin Total 0.6 mg/dL (0.0-1.0); Blood Urea Nitrogen 9 mg/dL (9-16); Calcium 9.4 mg/dL (8.4-10.2); Carbon Dioxide 29 mmol/L (22-29); Chloride 99 mmol/L (96-108); Creatinine Clr Calc Pharmacy 75.2; Estimated Glomerular Filt Rate > 60; Glucose Random 98 mg/dL (60-115); Potassium 4.1 mmol/L (3.3-5.1); Sodium 136 mmol/L (135-145); Total Protein 6.4 g/dL (6.5-8.0)
[2021-07-24 18:06] VITALS: BP 146/80; PULSE 73; RESP 14
[2021-07-24 18:14] LABS: INTERNATIONAL NORM RATIO 0.9 (0.9-1.1); Prothrombin Time 10.7 SEC (9.9-13.0)
[2021-07-24 18:34] VITALS: BP 138/78; PULSE 76; RESP 15; TEMP 36.6; O2SAT 96
[2021-07-24 18:37] LABS: COVID-19 Test Negative (Negative); IDNOW Serial# 9DD0AD1C
--- NOTE | 2021-07-24 20:00 | PC.NURSE ---
Report given to Edmar TORRES at [facility]
== END 2021-07-24 21:57 | disposition short-term general hospital (02) ==
PROVIDERS: Emergency Provider Emergency Medicine
DX: I62.9 Nontraumatic intracranial hemorrhage, unspecified (principal); Z20.822 Contact with and (suspected) exposure to COVID-19; F41.9 Anxiety disorder, unspecified; Z87.891 Personal history of nicotine dependence
CPT/HCPCS: 36415; 70450; 80053; 85025; 85610; 85730; 87635; 93005; 96374; 99285; 99291